=== PATIENT | male | born 1930 | race Caucasian/White ===

== ENCOUNTER 2017-11-20 10:17 | Observation (INO) | payer MEDICARE ==
[2017-11-20 10:51] LABS: #Eosinphils 0.2 thou/uL (0.0-0.7); #Lymphocytes 2.1 thou/uL (1.20-3.40); #Monocytes 1.2 thou/uL (0.11-0.59); #Neutrophils 5.8 thou/uL (1.40-6.50); %Basophils 0.5 % (0.0-1.0); %Eosinophils 2.5 % (0.0-10.0); %Lymphocytes 22.2 % (21.0-51.0); %Monocytes 12.6 % (0.0-10.0); %Neutrophils 62.2 % (42.0-75.0); Mean Corpuscular Hemoglobin 32.7 pg (27.0-31.0); Mean Corpuscular Volume 93.6 fL (78.0-98.0); Mean Platelet Volume 5.6 fL (7.4-10.4); Platelet Count 211 thou/uL (130-400); White Blood Cell (WBC) Count 9.3 thou/uL (4.8-10.8)
[2017-11-20 11:09] LABS: ALT (SGPT) 21 U/L (8-55); AST (SGOT) 18 U/L (5-34); Alkaline Phosphatase 87 U/L (40-150); Anion Gap 13 mmol/L (10-20); BUN (Urea Nitrogen) 12 mg/dL (8.4-25.7); Bilirubin, Total 0.6 mg/dL (0.2-1.2); CK (CPK) 77 U/L (30-200); Calc. Creatinine Clearance 0 mL/min (70-130); Calcium 9.3 mg/dL (7.8-10.44); Carbon Dioxide 23 mmol/L (23-31); Chloride 98 mmol/L (98-107); Estimated GFR-MDRD 85; Glucose 120 mg/dL (83-110); Lipase 15 U/L (8-78); Potassium 3.7 mmol/L (3.5-5.1); Sodium 130 mmol/L (136-145)
[2017-11-20 11:12] LABS: CKMB 1.5 ng/mL (0-6.6); Troponin I Less than 0.010 ng/mL (< 0.028)
--- NOTE | 2017-11-20 11:18 | RAD ---
ONE VIEW CHEST: COMPARISON: 10/27/17. HISTORY: Pain. FINDINGS: Normal cardiac silhouette. The pulmonary vessels and hilum are normal. No consolidation or mass. C hronic changes of left lung base. No pneumothorax or osseous abnormalities. IMPRESSION: No acute cardiopulmonary process. POS: [facility]
[2017-11-20] MEDS ORDERED: Ondansetron HCl/PF 4 MG/2 ML Vial IVP PRN ×2 (12:00→19:44)
[2017-11-20] MEDS ORDERED: Sodium Chloride 0.9% 1,000 ML IV SCH (12:00)
[2017-11-20] MEDS ORDERED: Ondansetron ODT 4 MG TAB SL PRN (12:00)
[2017-11-20 14:12] VITALS: BMI 26.6
[2017-11-20 14:16] LABS: Troponin I Less than 0.010 ng/mL (< 0.028)
[2017-11-20 17:39] LABS: Troponin I 0.015 ng/mL (< 0.028)
[2017-11-20] MEDS ORDERED: Fluticasone Propionate Nasal Spray 16 gm Bottle NASAL PRN (19:44)
[2017-11-20] MEDS ORDERED: Famotidine 20 MG TAB PO PRN (19:44)
[2017-11-20] MEDS ORDERED: cloNIDine 0.1 MG TAB PO PRN ×2 (19:44)
[2017-11-20] MEDS ORDERED: hydrALAZINE 20 MG/ML VIAL SLOW IVP PRN (19:44)
[2017-11-20] MEDS ORDERED: Diazepam 5 MG TAB PO PRN ×2 (19:44→20:25)
[2017-11-20] MEDS ORDERED: Lorazepam 1 MG TAB PO PRN (19:44)
[2017-11-20] MEDS ORDERED: Ondansetron ODT 4 MG TAB PO PRN (19:44)
[2017-11-20] MEDS ORDERED: Acetaminophen 500 MG TAB PO PRN (19:44)
[2017-11-20] MEDS: Famotidine 20 MG TAB PO SCH (20:13)
--- NOTE | 2017-11-21 01:09 | HP ---
DATE OF ADMISSION: 11/20/2017 PRIMARY CARE PHYSICIAN: Dr. Blas Page. CHIEF COMPLAINT: Palpitations. HISTORY OF PRESENT ILLNESS: This is an 87-year-old male who presents to [facility] complaining of heart pounding and palpitations. Patient states he notices the symptoms, especially when lying still, or sitting in a chair. Patient admits to some shortness of breath with exertion, but denied any loss of consciousness, chest pain, or jaw discomfor t. Patient denies any recent change to his medication regimen, travel history, recent trauma, injury , or surgery. Patient denies any strong family. Patient may any strong personal history of coronary artery disease, but does state a longstanding history of hypertension managed with metoprolol and Be nicar. Patient also admits to severe anxiety disorder, taking Valium for many years. The family als o reports increased stress with recent of a family member in the last 1-2 weeks prior to this e valuation. The patient's [id number] apparently due to complications of heart failure and the reports that the patient now complained of symptoms of heart failure. The patient estrada es any lower extremity swelling, weight gain, or orthopnea. The reports patient normally just s its in a chair at home and has not been active. The patient states he has been planning on traveling over the last year and a half, but is afraid to travel. In the emergency room, the patient underwen t general evaluation including chest imaging and EKG showing no acute process. Screening metabolic s urvey showed a chronic hyponatremia, otherwise unremarkable. The patient received aspirin 324 mg and was referred to the observation unit. PAST MEDICAL HISTORY: 1. Hypertension. 2. Severe anxiety disorder. 3. History of partial small-bowel obstruction. 4. History of colon cancer, status post resection. 5. Inguinal hernia. PAST SURGICAL HISTORY: 1. Status post inguinal hernia repair. 2. Status post cholecystectomy. 3. Status post colon resection. CURRENT MEDICATIONS: 1. Tenormin 100 mg one tab p.o. daily. 2. Valium 2.5 mg p.o. b.i.d. 3. Flonase 1 spray in each naris daily. 4. Benicar 40 mg p.o. daily. 5. Zantac 150 mg p.o. daily. 6. Clonidine 0.1 mg as needed for systolic over 170. ALLERGIES: ERYTHROMYCIN and DEMEROL. FAMILY HISTORY: Positive for hypertension. Mother of complications of old age at 93. Father d ied of complications of a CVA. SOCIAL HISTORY: Patient is , accompanied by his in the hospital. No current alcohol, to bacco or illicit drug use. Ambulatory without assistive device. Resides in [place], [place]. Accomp anied by his and daughter in the hospital. REVIEW OF SYSTEMS: The following complete review of systems was negative, unless otherwise mentioned in the HPI or below: Constitutional: Weight loss or gain, ability to conduct usual activities. Sk in: Rash, itching. Eyes: Double vision, pain. ENT/Mouth: Nose bleeding, neck stiffness, pain, te nderness. Cardiovascular: Palpitations, dyspnea on exertion, orthopnea. Respiratory: Shortness of breath, wheezing, cough, hemoptysis, fever or night sweats. Gastrointestinal: Poor appetite, abdom inal pain, heartburn, nausea, vomiting, constipation, or diarrhea. Genitourinary: Urgency, frequenc y, dysuria, nocturia. Musculoskeletal: Pain, swelling. Neurologic/Psychiatric: Anxiety, depressio n. Allergy/Immunologic: Skin rash, bleeding tendency. PHYSICAL EXAMINATION: VITAL SIGNS: Blood pressure 177/84, pulse 69, respiratory rate is 12, temperature 97.9 degrees Fahre nheit, O2 saturation 98% on room air. GENERAL APPEARANCE: This is an 87-year-old male, anxious appearing, responsive, in no acut e distress. HEENT: Pupils are equal, round, and reactive to light and accommodation. Extraocular muscles are in tact. No scleral icterus, no conjunctival injection. Nares patent. OP is clear. Teeth in fair rep air. NECK: Supple, no cervical adenopathy, no thyromegaly, no carotid bruits, no JVD appreciated. Cervic al spine with full active and passive range of motion. No meningeal signs appreciated. CHEST: Lungs are clear to auscultation bilaterally. CARDIOVASCULAR: S1, S2, without noted murmur, rub or gallop. ABDOMEN: Rounded, soft, nontender, nondistended. Bowel sounds are positive in all four quadrants. There is no hepatosplenomegaly, no abdominal bruits, no rebound or guarding appreciated. EXTREMITIES: Warm and dry with good turgor. No clubbing, cyanosis or asymmetric edema appreciated. Pulses palpable distally at the dorsalis pedis, posterior tibial, and popliteal arteries bilaterally . Capillary refill less than 2 seconds. NEUROLOGIC: Cranial nerves II-XII are grossly intact. No focal or lateralizing signs appreciated. PERTINENT LABORATORY AND X-RAY FINDINGS: Sodium 130, potassium 3.7, chloride 98, CO2 of 23, BUN 12, creatinine 0.85, estimated GFR 85, glucose 120, calcium 9.3. LFTs within normal limits. Troponin I negative x3. BNP less than 10. Albumin 4.0, lipase 15. CBC showed a white blood cell count 9.3, he moglobin 16, hematocrit 46, platelet count 211 with normal differential. Portable chest x-ray dated 11/20/2017 showed no acute cardiopulmonary process. EKG dated 11/21/2007 by my interpretation shows a sinus mechanism with heart rates in the 80s. Normal R-wave progression noted in the precordial violet ds. Normal axis. No acute ST-T wave changes appreciated. ASSESSMENT AND PLAN: 1. Palpitations. Patient will be observed on the telemetry unit. Etiology unclear as review of the telemetry monitoring shows no evidence of arrhythmia, pauses or premature atrial or ventricular cont ractions. We will continue telemetry monitoring overnight and monitor for recurrence. Check TSH and magnesium level in the a.m. No current evidence to suggest acute coronary syndrome or cardiac ische alno. 2. Anxiety disorder. Resume Valium 2.5 mg p.o. b.i.d. The patient may need additional titration of his anxiolytics on an ongoing basis. 3. Chronic hyponatremia. Hyponatremia dates back to 2011 on after reviewing the electronic medical record. No current intervention recommended. 5. Hypertension. Resume home antihypertensive regimen to include Tenormin 100 mg daily, and Benicar 40 mg daily. 6. Gastroesophageal reflux. Continue Zantac 150 mg daily. May titrate Zantac to b.i.d. 7. Prophylaxis. Sequential compression devices while in bed. Zantac 150 mg daily. 8. Code status is FULL. Surrogate medical decision maker is patient's spouse.
[2017-11-21 03:06] VITALS: TEMP 97.6
[2017-11-21 04:54] LABS: Anion Gap 9 mmol/L (10-20); BUN (Urea Nitrogen) 9 mg/dL (8.4-25.7); Calc. Creatinine Clearance 76 mL/min (70-130); Calcium 8.9 mg/dL (7.8-10.44); Carbon Dioxide 28 mmol/L (23-31); Cardiac Risk 4.4 (Less than 4.5); Chloride 101 mmol/L (98-107); Cholesterol 164 mg/dl (< 200 Desired); Estimated GFR-MDRD Greater than 90; Glucose 90 mg/dL (83-110); HDL Cholesterol 37 mg/dL (>60 Neg Risk); LDL Cholesterol, Calculated 115 mg/dL; Potassium 3.8 mmol/L (3.5-5.1); Sodium 134 mmol/L (136-145); Triglycerides 58 mg/dL (Less than 150)
[2017-11-21 07:07] LABS: Hemoglobin 14.1 g/dL (14.0-18.0); Mean Corpuscular HGB CONC 32.5 g/dL (32.0-36.0); Mean Corpuscular Hemoglobin 30.5 pg (27.0-31.0); Mean Corpuscular Volume 94.1 fL (78.0-98.0); Mean Platelet Volume 5.9 fL (7.4-10.4); Platelet Count 205 thou/uL (130-400); Red Blood Cell (RBC) Count 4.61 mill/uL (4.70-6.10); White Blood Cell (WBC) Count 8.3 thou/uL (4.8-10.8)
[2017-11-21 07:40] LABS: Band 2 % (5-11); Eosinophils 5 % (0-10); Lymphocytes 22 % (21-51); MDiff Complete? YES; Monocytes 14 % (0-10); Neutrophil 55 % (42-75); PLT Morphology Comment Appears Adequate; RBC Morphology Normal; Reactive Lymphocytes 2 % (0-10)
[2017-11-21] MEDS: Famotidine 20 MG TAB PO SCH (08:30)
[2017-11-21 08:32] VITALS: BP 166/81
[2017-11-21] MEDS ORDERED: Atenolol 50 MG TAB PO SCH (09:00)
--- NOTE | 2017-11-21 11:01 | DIS ---
DATE OF ADMISSION: 11/20/2017 DATE OF DISCHARGE: 11/21/2017 DISCHARGE DIAGNOSES: 1. Palpitations, unknown etiology. 2. Hypertension, labile. 3. Severe anxiety disorder. 4. Chronic hyponatremia. 5. Gastroesophageal reflux. CONSULTATIONS: None. PERTINENT LABORATORY AND X-RAY FINDINGS: Sodium ranged between 130-134, troponin I negative x3. BNP is less than 10. Total cholesterol 164, triglycerides 58, HDL 37, LDL 115, lipase 15. CBC within n ormal limits. Portable chest x-ray dated 11/20/2017 showed no acute cardiopulmonary process. HOSPITAL COURSE: Patient was observed on the telemetry unit after initially presenting with complain ts of palpitations. The patient underwent general metabolic evaluation as well as a cardiac workup w ithout specific evidence of dysrhythmia, arrhythmia, sinus pauses, or premature contractions. Teleme try monitoring showed a sinus mechanism without evidence of any arrhythmia or dysrhythmia. Screening metabolic survey was negative as stated previously and no evidence to suggest cardiac ischemia or el ectrolyte disturbance to explain patient's presentation. Likely patient's symptoms related to gastro esophageal reflux in conjunction with severe anxiety. Current recommendations are to increase Zantac to 150 mg to 300 mg daily. General education and reassurance given to the patient and family member s. I have examined the patient at the time of discharge and discussed followup instructions. The ruth alejandro verbalized understanding and agreement and ready for discharge on 11/21/2017. DISCHARGE MEDICATIONS: 1. Atenolol 100 mg 1 tab p.o. daily. 2. Clonidine 0.1 mg p.o. as needed for systolic greater than or equal to 170. 3. Valium 2.5 mg p.o. b.i.d. 4. Flonase 1 spray in each naris daily. 5. Benicar 40 mg p.o. daily. 6. Zantac 150 mg p.o. daily. FOLLOWUP: Patient may follow up with his primary care provider, Dr. Blas Page within 7 days of discharge. CONDITION ON DISCHARGE: Stable. ACTIVITY: Ad derrick. DIET: Regular. CODE STATUS: FULL. DISPOSITION: Home, 11/21/2017.
== END 2017-11-21 11:40 | disposition home or self-care (01) ==
LOC: ERS 10:17 → 2SW 13:57
PROVIDERS: ADMIT Family Medicine; ATTEND Family Medicine
DX: R00.2 Palpitations (principal); I10 Essential (primary) hypertension; F41.9 Anxiety disorder, unspecified; E87.1 Hypo-osmolality and hyponatremia; K21.9 Gastro-esophageal reflux disease without esophagitis; Z88.8 Allergy status to other drugs, medicaments and biological substances; Z88.1 Allergy status to other antibiotic agents; Z79.899 Other long term (current) drug therapy
CPT/HCPCS: 71045; 80048; 80053; 80061; 82550; 82553; 83690; 83880; 84484 ×2; 85007; 85025; 85027; 93005; 96360; 96361; 99285; G0378; 36415